=== PATIENT | male | born 1990 | race Caucasian/White ===

== ENCOUNTER 2020-09-09 11:11 | Emergency (ER) | payer BC, SELFPAY ==
[2020-09-09 11:18] VITALS: BP 152/95; PULSE 80; RESP 18; TEMP 36.8; O2SAT 99; BMI 27.8
[2020-09-09 13:48] VITALS: BP 128/82; PULSE 78; RESP 18; TEMP 36.8; O2SAT 98
--- NOTE | 2020-09-09 14:01 | ED.ABDPAIN ---
HPI - Abdominal Pain General Chief Complaint: Abdominal Pain <Patrick Lorenz NP - Last Filed: 09/09/20 15:58> Stated Complaint: abd pain <Patrick Lorenz NP - Last Filed: 09/09/20 15:58> Time Seen by Provider: 09/09/20 13:37 <Patrick Lorenz NP - Last Filed: 09/09/20 15:58> Source: patient <Patrick Lorenz NP - Last Filed: 09/09/20 15:58> Mode of arrival: ambulatory <Patrick Lorenz NP - Last Filed: 09/09/20 15:58> Limitations: no limitations <Patrick Lorenz NP - Last Filed: 09/09/20 15:58> History of Present Illness HPI narrative: Burning/stabbing like epigastric pain. Worsening with certain food intake, there is nausea but no vomiting or diarrhea. <Patrick Lorenz NP - Last Filed: 09/09/20 15:58> MD elicited complaint: abdominal pain <Patrick Lorenz NP - Last Filed: 09/09/20 15:58> Pertinent past history: none <Patrick Lorenz NP - Last Filed: 09/09/20 15:58> Pain Consistency: intermittent <Patrick Lorenz NP - Last Filed: 09/09/20 15:58> Location: epigastric <Patrick Lorenz NP - Last Filed: 09/09/20 15:58> Severity: moderate <Patrick Lorenz NP - Last Filed: 09/09/20 15:58> Quality: stabbing, aching and burning <Patrick Lorenz NP - Last Filed: 09/09/20 15:58> Migration to: no migration <Patrick Lorenz NP - Last Filed: 09/09/20 15:58> Exacerbating factors: eating <Patrick Lorenz NP - Last Filed: 09/09/20 15:58> Relieving factors: rest <Patrick Lorenz NP - Last Filed: 09/09/20 15:58> Related Data Home Medications: Previous Rx's Medication Instructions Recorded omeprazole magnesium [Prilosec OTC] 20 mg PO BID 7 Days #14 tab 09/09/20 ondansetron HCl [Zofran] 4 mg PO Q8H PRN #10 tab 09/09/20 omeprazole 20 mg capsule,delayed 20 mg PO DAILY #30 cap 09/15/20 release <Patrick Lorenz NP - Last Filed: 09/09/20 15:58> Allergies/Adverse Reactions: Allergies Allergy/AdvReac Type Severity Reaction Status Date / Time No Known Allergies Allergy Verified 09/15/20 07:30 <Patrick Lorenz NP - Last Filed: 09/09/20 15:58> Review of Systems Review of Systems Constitutional: No Weight loss, No Fever, No Chills, No Night Sweats, No Fatigue, No Malaise ENT/Mouth: No Hearing loss, No Ear Pain, No Nasal Congestion, No Sinus Pain, No Hoarseness, No sore throat, No Rhinorrhea, No Swallowing Difficulty Eyes: No Eye Pain, No Swelling, No Redness, No Foreign Body, No Discharge, No Vision Changes Cardiovascular: No Chest Pain, No SOB, No Dyspnea on Exertion, No Orthopnea, No Edema, No Palpitations Respiratory: No Cough, No Sputum, No Wheezing, No Dyspnea Gastrointestinal: As noted per HPI, No Vomiting, No Diarrhea, No Constipation,No Hematochezia, No Melena Genitourinary: no irregular bleeding, No Dysuria, No Urinary Frequency, No Hematuria, No Urinary Incontinence, No Urgency, No Flank Pain, No Urinary Flow Changes, No Hesitancy Musculoskeletal: No joint pain, No Myalgias, No Joint Swelling Skin: No Skin Lesions, No rash Neuro: No Weakness, No Numbness, No Paresthesias, No Loss of Consciousness, No Dizziness, No Headache Psych: No Anxiety/Panic, No Depression, No SI/HI/AH/VH, No Social Issues, Heme/Lymph: No Bruising, No Bleeding,No Lymphadenopathy Endocrine: No Polyuria, No Polydipsia, No Temperature Intolerance <Patrick Lorenz NP - Last Filed: 09/09/20 15:58> Yes all other systems are reviewed and are negative <Patrick Lorenz NP - Last Filed: 09/09/20 15:58> Physical Exam Vital Signs: Vital Signs: Last Vital Signs Temp 98.2 F 09/09/20 13:48 Pulse 84 09/09/20 15:52 Resp 16 09/09/20 15:52 BP 134/94 H 09/09/20 15:52 Pulse Ox 99 09/09/20 15:52 Body Mass Index 27.8 Reviewed <Patrick Lorenz NP - Last Filed: 09/09/20 15:58> Vital Signs: Last Vital Signs Temp 98.2 F 09/09/20 13:48 Pulse 84 09/09/20 15:52 Resp 16 09/09/20 15:52 BP 134/94 H 09/09/20 15:52 Pulse Ox 99 09/09/20 15:52 Body Mass Index 27.8 <Gray Albert MD - Last Filed: 09/29/20 11:11> Const: General: cooperative and healthy appearing; No acute distress or intoxicated appearing <Patrickkishore Lorenz NP - Last Filed: 09/09/20 15:58> Nutritional Appearance: average body habitus <Patrickkishore Lorenz NP - Last Filed: 09/09/20 15:58> Orientation/consciousness: patient oriented x3 <[facility] BOB Lorenz - Last Filed: 09/09/20 15:58> HENMT: Head: Yes normal to inspection <Patrickkishore Lorenz NP - Last Filed: 09/09/20 15:58> Ears: hearing grossly normal bilaterally <[facility] BOB Lorenz - Last Filed: 09/09/20 15:58> Eyes: General: appearance normal, both eyes and all related structures <Patrickkishore Lorenz NP - Last Filed: 09/09/20 15:58> Visual Dominguez: normal visual dominguez by confrontation <[facility] BOB Lorenz - Last Filed: 09/09/20 15:58> Neck: Neck: Yes normal visual inspection, No positive Brudzinski's sign, No positive Kernig's sign and No tender <[facility] BOB Lorenz - Last Filed: 09/09/20 15:58> Thyroid: Thyroid normal <[facility] BOB Lorenz - Last Filed: 09/09/20 15:58> Chest: Chest palpation & inspection: normal inspection of the chest <Patrickkishore Lorenz NP - Last Filed: 09/09/20 15:58> Resp: Effort & Inspection: normal respiratory effort <[facility] BOB Lorenz - Last Filed: 09/09/20 15:58> Auscultation: clear to auscultation bilaterally <Patrick LorenzBOB - Last Filed: 09/09/20 15:58> Cardio: Jugular venous distension: no JVD <Patrick Kelechi [employer] - Last Filed: 09/09/20 15:58> Rate: regular rate <Patrickkishore Lorenz [employer] - Last Filed: 09/09/20 15:58> Rhythm: regular rhythm <[facility] Kelechi - Last Filed: 09/09/20 15:58> Heart sounds: S1 normal heart sound present and S2 normal heart sound present <[facility] Kelechi - Last Filed: 09/09/20 15:58> GI: Inspection: Yes normal to inspection <[facility] Kelechi [employer] - Last Filed: 09/09/20 15:58> Palpation (GI): Soft to palpation, nontender, no guarding and not rigid <Patrick Kelechi [employer] - Last Filed: 09/09/20 15:58> Percussion: Yes normal to percussion <[facility] Lorenz [employer] - Last Filed: 09/09/20 15:58> Auscultation: normal bowel sounds <Patrick Lorenz [employer] - Last Filed: 09/09/20 15:58> : General: Yes no CVA tenderness <Patrick LorenzBOB - Last Filed: 09/09/20 15:58> Back/Spine/Pelvis: Back: no CVA tenderness <Patrick LorenzBOB - Last Filed: 09/09/20 15:58> Skin: General skin exam: no rashes or lesions noted <Patrick LorenzBOB - Last Filed: 09/09/20 15:58> Neuro: General: patient oriented x3 <Patrick Lorenz [employer] - Last Filed: 09/09/20 15:58> Extrem: General: Yes normal to inspection <[facility] LorenzBOB - Last Filed: 09/09/20 15:58> Course Course Course Narrative: Feels much better after GI cocktail epigastric pain has essentially resolved. Will send home with short course of PPI, Zofran and close outpatient follow-up. Abdominal exam remains benign. No signs of peritonitis. Hemodynamically stable. Tolerating p.o. intake well. Clear return instructions follow-up instructions provided. <Patrick BOB Lorenz - Last Filed: 09/09/20 15:58> I have reviewed the chart <Gray Albert MD - Last Filed: 09/29/20 11:11> MDM - Abdominal Pain MDM Narrative Medical decision making narrative: A/p consistent with reflux type pain for the past 2 days will check labs including liver function test and treat with GI cocktail. <Patrick Lorenz NP - Last Filed: 09/09/20 15:58> Differential Diagnosis Differential diagnosis: Likely abdominal pain, gastroenteritis and gastritis; Unlikely aortic dissection, acute appendicitis, bowel perforation, calculus of kidney, constipation, mesenteric ischemia, peptic ulcer disease, renal colic and small bowel obstruction <Patrick Lorenz NP - Last Filed: 09/09/20 15:58> Medical Records Attestation: I reviewed the patient's medical records. <Patrick Lorenz NP - Last Filed: 09/09/20 15:58> Lab Data Attestation: I reviewed the patient's lab results. <Patrick Lorenz NP - Last Filed: 09/09/20 15:58> Result diagrams: : 09/09/20 13:58 09/09/20 13:58 <Patrick Lorenz NP - Last Filed: 09/09/20 15:58> Labs: Lab Results 09/09/20 09/09/20 09/09/20 Range/Units 13:58 13:58 13:58 WBC 6.2 (4.8-10.8) X10*3/uL RBC 5.18 (4.60-5.80) X10*6/uL Hgb 14.5 (14.0-18.0) g/dl Hct 44.2 (42-52) % MCV 85.3 (80-98) fL MCH 28.0 (27.0-33.0) pg MCHC 32.8 (31.0-36.0) g/dl RDW 12.5 (11.0-16.0) % Plt Count 249 (160-400) X10*3/uL MPV 12.1 (9.4-12.4) fL Immature Gran % (Auto) 0.3 (0.0-0.4) % Neut % (Auto) 58.0 (45-73) % Lymph % (Auto) 30.6 (20-40) % [place] % (Auto) 8.8 (2-11) % Eos % (Auto) 2.1 (0-4) % Baso % (Auto) 0.2 (0-2) % Lymph # (Auto) 1.9 (1.2-4.9) X10*3/uL [place] # (Auto) 0.5 (0.1-1.2) X10*3/uL Eos # (Auto) 0.1 (0.0-0.4) X10*3/uL Baso # (Auto) 0.0 (0.0-0.2) X10*3/uL Abs Immat Gran (auto) 0.02 (0.00-0.03) X10*3/uL Absolute Neuts (auto) 3.6 (2.0-8.3) X10*3/uL Absolute Nucleated RBC 0.000 (0.0-0.012) X10*3/uL Nucleated RBC % (auto) 0.0 (0.0-0.2) /100WBC Hold Blue Top SEE NOTE Sodium 140 (135-145) mmol/L Potassium 4.7 (3.3-5.1) mmol/L Chloride 104 (96-108) mmol/L Carbon Dioxide 29 (22-29) mmol/L Anion Gap 12 (12-20) BUN 18 H (9-16) mg/dL Creatinine 0.83 (0.5-1.4) mg/dL Estim Creat Clear Calc 144.1 Estimated GFR > 60 Random Glucose 81 (60-115) mg/dL Calcium 9.7 (8.4-10.2) mg/dL Total Bilirubin 0.8 (0.0-1.0) mg/dL AST 22 (5-37) U/L ALT 33 (0-40) U/L Alkaline Phosphatase 85 (39-117) U/L Total Protein 7.9 (6.5-8.0) g/dL Albumin 4.7 (3.5-5.0) g/dL Urine Color Urine Appearance Urine pH (5.0-8.0) Ur Specific [place] (1.005-1.025) Urine Protein (NEG-TRACE) MG/DL Urine Glucose (UA) (NEG) MG/DL Urine Ketones (NEG) MG/DL Urine Blood (NEG) Urine Nitrite (NEG) Ur Leukocyte Esterase (NEG) Urine RBC (0) /HPF Urine WBC (0-4) /HPF Ur Squamous Epith Cells /LPF Urine Bacteria /LPF Urine Mucus /LPF 09/09/20 Range/Units 14:29 WBC (4.8-10.8) X10*3/uL RBC (4.60-5.80) X10*6/uL Hgb (14.0-18.0) g/dl Hct (42-52) % MCV (80-98) fL MCH (27.0-33.0) pg MCHC (31.0-36.0) g/dl RDW (11.0-16.0) % Plt Count (160-400) X10*3/uL MPV (9.4-12.4) fL Immature Gran % (Auto) (0.0-0.4) % Neut % (Auto) (45-73) % Lymph % (Auto) (20-40) % [place] % (Auto) (2-11) % Eos % (Auto) (0-4) % Baso % (Auto) (0-2) % Lymph # (Auto) (1.2-4.9) X10*3/uL [place] # (Auto) (0.1-1.2) X10*3/uL Eos # (Auto) (0.0-0.4) X10*3/uL Baso # (Auto) (0.0-0.2) X10*3/uL Abs Immat Gran (auto) (0.00-0.03) X10*3/uL Absolute Neuts (auto) (2.0-8.3) X10*3/uL Absolute Nucleated RBC (0.0-0.012) X10*3/uL Nucleated RBC % (auto) (0.0-0.2) /100WBC Hold Blue Top Sodium (135-145) mmol/L Potassium (3.3-5.1) mmol/L Chloride (96-108) mmol/L Carbon Dioxide (22-29) mmol/L Anion Gap (12-20) BUN (9-16) mg/dL Creatinine (0.5-1.4) mg/dL Estim Creat Clear Calc Estimated GFR Random Glucose (60-115) mg/dL Calcium (8.4-10.2) mg/dL Total Bilirubin (0.0-1.0) mg/dL AST (5-37) U/L ALT (0-40) U/L Alkaline Phosphatase (39-117) U/L Total Protein (6.5-8.0) g/dL Albumin (3.5-5.0) g/dL Urine Color YELLOW Urine Appearance CLEAR Urine pH 7.5 (5.0-8.0) Ur Specific [place] 1.020 (1.005-1.025) Urine Protein NEG (NEG-TRACE) MG/DL Urine Glucose (UA) NEG (NEG) MG/DL Urine Ketones 5 (NEG) MG/DL Urine Blood NEG (NEG) Urine Nitrite NEG (NEG) Ur Leukocyte Esterase NEG (NEG) Urine RBC 0-2 (0) /HPF Urine WBC 0 (0-4) /HPF Ur Squamous Epith Cells NONE /LPF Urine Bacteria NONE /LPF Urine Mucus 2+ /LPF <Patrick Lorenz NP - Last Filed: 09/09/20 15:58> Lab Results 09/09/20 09/09/20 09/09/20 Range/Units 13:58 13:58 13:58 WBC 6.2 (4.8-10.8) X10*3/uL RBC 5.18 (4.60-5.80) X10*6/uL Hgb 14.5 (14.0-18.0) g/dl Hct 44.2 (42-52) % MCV 85.3 (80-98) fL MCH 28.0 (27.0-33.0) pg MCHC 32.8 (31.0-36.0) g/dl RDW 12.5 (11.0-16.0) % Plt Count 249 (160-400) X10*3/uL MPV 12.1 (9.4-12.4) fL Immature Gran % (Auto) 0.3 (0.0-0.4) % Neut % (Auto) 58.0 (45-73) % Lymph % (Auto) 30.6 (20-40) % [place] % (Auto) 8.8 (2-11) % Eos % (Auto) 2.1 (0-4) % Baso % (Auto) 0.2 (0-2) % Lymph # (Auto) 1.9 (1.2-4.9) X10*3/uL [place] # (Auto) 0.5 (0.1-1.2) X10*3/uL Eos # (Auto) 0.1 (0.0-0.4) X10*3/uL Baso # (Auto) 0.0 (0.0-0.2) X10*3/uL Abs Immat Gran (auto) 0.02 (0.00-0.03) X10*3/uL Absolute Neuts (auto) 3.6 (2.0-8.3) X10*3/uL Absolute Nucleated RBC 0.000 (0.0-0.012) X10*3/uL Nucleated RBC % (auto) 0.0 (0.0-0.2) /100WBC Hold Blue Top SEE NOTE Sodium 140 (135-145) mmol/L Potassium 4.7 (3.3-5.1) mmol/L Chloride 104 (96-108) mmol/L Carbon Dioxide 29 (22-29) mmol/L Anion Gap 12 (12-20) BUN 18 H (9-16) mg/dL Creatinine 0.83 (0.5-1.4) mg/dL Estim Creat Clear Calc 144.1 Estimated GFR > 60 Random Glucose 81 (60-115) mg/dL Calcium 9.7 (8.4-10.2) mg/dL Total Bilirubin 0.8 (0.0-1.0) mg/dL AST 22 (5-37) U/L ALT 33 (0-40) U/L Alkaline Phosphatase 85 (39-117) U/L Total Protein 7.9 (6.5-8.0) g/dL Albumin 4.7 (3.5-5.0) g/dL Urine Color Urine Appearance Urine pH (5.0-8.0) Ur Specific [place] (1.005-1.025) Urine Protein (NEG-TRACE) MG/DL Urine Glucose (UA) (NEG) MG/DL Urine Ketones (NEG) MG/DL Urine Blood (NEG) Urine Nitrite (NEG) Ur Leukocyte Esterase (NEG) Urine RBC (0) /HPF Urine WBC (0-4) /HPF Ur Squamous Epith Cells /LPF Urine Bacteria /LPF Urine Mucus /LPF 09/09/20 Range/Units 14:29 WBC (4.8-10.8) X10*3/uL RBC (4.60-5.80) X10*6/uL Hgb (14.0-18.0) g/dl Hct (42-52) % MCV (80-98) fL MCH (27.0-33.0) pg MCHC (31.0-36.0) g/dl RDW (11.0-16.0) % Plt Count (160-400) X10*3/uL MPV (9.4-12.4) fL Immature Gran % (Auto) (0.0-0.4) % Neut % (Auto) (45-73) % Lymph % (Auto) (20-40) % [place] % (Auto) (2-11) % Eos % (Auto) (0-4) % Baso % (Auto) (0-2) % Lymph # (Auto) (1.2-4.9) X10*3/uL [place] # (Auto) (0.1-1.2) X10*3/uL Eos # (Auto) (0.0-0.4) X10*3/uL Baso # (Auto) (0.0-0.2) X10*3/uL Abs Immat Gran (auto) (0.00-0.03) X10*3/uL Absolute Neuts (auto) (2.0-8.3) X10*3/uL Absolute Nucleated RBC (0.0-0.012) X10*3/uL Nucleated RBC % (auto) (0.0-0.2) /100WBC Hold Blue Top Sodium (135-145) mmol/L Potassium (3.3-5.1) mmol/L Chloride (96-108) mmol/L Carbon Dioxide (22-29) mmol/L Anion Gap (12-20) BUN (9-16) mg/dL Creatinine (0.5-1.4) mg/dL Estim Creat Clear Calc Estimated GFR Random Glucose (60-115) mg/dL Calcium (8.4-10.2) mg/dL Total Bilirubin (0.0-1.0) mg/dL AST (5-37) U/L ALT (0-40) U/L Alkaline Phosphatase (39-117) U/L Total Protein (6.5-8.0) g/dL Albumin (3.5-5.0) g/dL Urine Color YELLOW Urine Appearance CLEAR Urine pH 7.5 (5.0-8.0) Ur Specific [place] 1.020 (1.005-1.025) Urine Protein NEG (NEG-TRACE) MG/DL Urine Glucose (UA) NEG (NEG) MG/DL Urine Ketones 5 (NEG) MG/DL Urine Blood NEG (NEG) Urine Nitrite NEG (NEG) Ur Leukocyte Esterase NEG (NEG) Urine RBC 0-2 (0) /HPF Urine WBC 0 (0-4) /HPF Ur Squamous Epith Cells NONE /LPF Urine Bacteria NONE /LPF Urine Mucus 2+ /LPF <Gray Albert MD - Last Filed: 09/29/20 11:11> Discharge Plan Discharge Clinical Impression: Epigastric abdominal pain <Patrick Lorenz NP - Last Filed: 09/09/20 15:58> Patient Disposition: Home, Self-Care <Patrick Lorenz NP - Last Filed: 09/09/20 15:58> Instructions: Epigastric Pain (ED) <Patrick Lorenz NP - Last Filed: 09/09/20 15:58> Additional Instructions: [place] diet Take medication prescribed Return if any concerns or worsening symptoms Otherwise follow up with his primary care doctor in 1 week Thank you <Patrick Lorenz NP - Last Filed: 09/09/20 15:58> Prescriptions: New omeprazole magnesium [Prilosec OTC] 20 mg tablet,delayed release (DR/EC) 20 mg PO BID 7 Days Qty: 14 RF: 0 ondansetron HCl [Zofran] 4 mg tablet 4 mg PO Q8H PRN (Reason: nausea and vomiting) Qty: 10 RF: 0 No Action omeprazole 20 mg capsule,delayed release(DR/EC) 20 mg PO DAILY Qty: 30 RF: 5 <Patrick Lorenz NP - Last Filed: 09/09/20 15:58> Referrals: Marcos Velasco MD [Primary Care Provider] - 1 week <Patrick Lorenz NP - Last Filed: 09/09/20 15:58> Stand Alone Forms: Work/School Release <Patrick Lorenz NP - Last Filed: 09/09/20 15:58> Interventions: ED Discharge Assessment Last Done: 09/09/20 16:04 <Patrick Lorenz NP - Last Filed: 09/09/20 15:58> Discharge Date/Time: 09/09/20 16:04 <Patrick Lorenz NP - Last Filed: 09/09/20 15:58> [facility], [facility] Past Medical History Medical History: Medical History (Updated 09/15/20 @ 08:22 by Selena Cartwright PA-C) Epigastric pain Von Willebrand disease <Patrick Lorenz NP - Last Filed: 09/09/20 15:58> Social History Social History: Social History (Updated 09/15/20 @ 07:31 by Lindsay Mcdermott CMA) Household Members: None Alcohol intake: current Alcohol intake frequency: holidays/special occasions only Smoking Status: Never smoker Current occupational status: employed Current occupation: [employer] <Patrick Lorenz NP - Last Filed: 09/09/20 15:58>
[2020-09-09 14:04] LABS: MANUAL DIFF FLAG NO
[2020-09-09] MEDS: Lidocaine HCl Viscous 2 % 15 ML SOLUTION 10 ML MUCOUS MEM (14:13)
[2020-09-09 14:14] LABS: Basophils Percent Auto 0.2 % (0-2); Eosinophils Absolute Auto 0.1 X10*3/uL (0.0-0.4); Eosinophils Percent Auto 2.1 % (0-4); Hematocrit 44.2 % (42-52); Hemoglobin 14.5 g/dl (14.0-18.0); Imm Gran Abs Auto 0.02 X10*3/uL (0.00-0.03); Imm Gran Pct Auto 0.3 % (0.0-0.4); Lymphocytes Absolute Auto 1.9 X10*3/uL (1.2-4.9); Lymphocytes Percent Auto 30.6 % (20-40); Mean Corpuscular HGB Conc 32.8 g/dl (31.0-36.0); Mean Corpuscular Volume 85.3 fL (80-98); Mean Platelet Volume 12.1 fL (9.4-12.4); Monocytes Absolute Auto 0.5 X10*3/uL (0.1-1.2); Monocytes Percent Auto 8.8 % (2-11); Neutrophils Absolute Auto 3.6 X10*3/uL (2.0-8.3); Platelet Count 249 X10*3/uL (160-400); Red Blood Count 5.18 X10*6/uL (4.60-5.80); Red Cell Distribution Width 12.5 % (11.0-16.0); White Blood Count 6.2 X10*3/uL (4.8-10.8)
[2020-09-09] MEDS: Magnesium Hydrox/Alum Hydrox 30 ML ORAL.SUSP PO (14:14)
[2020-09-09 14:47] LABS: Alanine Aminotransferase 33 U/L (0-40); Albumin Level 4.7 g/dL (3.5-5.0); Alkaline Phosphatase 85 U/L (39-117); Anion Gap 12 (12-20); Aspartate Amino Transferase 22 U/L (5-37); Bilirubin Total 0.8 mg/dL (0.0-1.0); Blood Urea Nitrogen 18 mg/dL (9-16); Calcium 9.7 mg/dL (8.4-10.2); Carbon Dioxide 29 mmol/L (22-29); Chloride 104 mmol/L (96-108); Creatinine Clr Calc Pharmacy 144.1; Estimated Glomerular Filt Rate > 60; Glucose Random 81 mg/dL (60-115); Potassium 4.7 mmol/L (3.3-5.1); Sodium 140 mmol/L (135-145); Total Protein 7.9 g/dL (6.5-8.0)
[2020-09-09 14:47] LABS: Glucose Urine UA NEG (NEG); Leukocyte Esterase Urine NEG (NEG); Nitrite Urine NEG (NEG); PH 7.5 (5.0-8.0); Urine Blood NEG (NEG); Urine Ketones 5 MG/DL (NEG); Urine Protein NEG (NEG-TRACE)
[2020-09-09 14:55] LABS: Appearance Urine CLEAR; Color Urine YELLOW
[2020-09-09 14:59] LABS: Mucus Urine 2+ /LPF; RBC Urine 0-2 /HPF (0); WBC Urine 0 /HPF (0-4)
[2020-09-09 15:52] VITALS: BP 134/94; PULSE 84; RESP 16; O2SAT 99
== END 2020-09-09 16:04 | disposition home or self-care (01) ==
PROVIDERS: Nurse Practitioner Primary Care; Emergency Provider Emergency Medicine; PCP Internal Medicine
DX: R10.13 Epigastric pain (principal); Z79.899 Other long term (current) drug therapy
CPT/HCPCS: 36415; 80053; 81001; 85025; 99283; 99284

== ENCOUNTER → 2020-09-15 07:29 | Outpatient (BNVA) | payer BC, SELFPAY | PROVIDERS: Visit Provider Physician Assistant ==